=== PATIENT | male | born 1975 | race Two or more races ===

== ENCOUNTER 2016-07-09 11:25 | Emergency (ER) | payer SELFPAY ==
[~2016-07-09] VITALS: Ht 177.8 cm; Wt 81.6 kg
[2016-07-09] MEDS ORDERED: ALBUTEROL SULF 2.5 MG/0.5ML(0.5%) NEB SOLN NEB ONE (12:00)
[2016-07-09] MEDS ORDERED: IPRATROPIUM BROM 0.5 MG/2.5ML INH SOL NEB ONE (12:00)
[2016-07-09 12:55] LABS: Basophils # (auto) 0 uL; Basophils % (auto) 0.4 % (0.0-2.0); DEFINITIVE VIEW TRANSMISSION; Eosinophils # (auto) 0.7 uL; Eosinophils % (auto) 10.5 % (0.0-7.0); Hematocrit 45.1 % (41.0-53.0); Hemoglobin 15.1 g/dL (13.5-17.5); Lymphocytes # (auto) 2.6 uL; Mean Corpuscular Hemoglobin 28.4 pg (28.0-32.0); Mean Corpuscular Hgb Conc. 33.6 g/dL (32.0-36.0); Mean Corpuscular Volume 84.4 fL (80.0-100.0); Mean Platelet Volume 8.3 fL (7.4-10.4); Monocytes # (auto) 0.5 uL; Monocytes % (auto) 7.7 % (0.0-12.0); Neutrophils # (auto) 3.1 uL; Neutrophils % (auto) 44.4 % (37.0-80.0); Platelet Count (auto) 282 10^3/uL (140-450); Red Cell Distribution Width 13.3 % (11.6-16.0)
[2016-07-09 13:04] VITALS: BP 131/86
[2016-07-09 13:09] LABS: Albumin 3.8 g/dL (3.4-5.0); Anion Gap 9 (5-15); Blood Urea Nitrogen 17 mg/dL (7-18); Carbon Dioxide 28 mmol/L (21-32); Chloride 108 mmol/L (98-107); Glucose 128 mg/dL (74-106); Magnesium 2.5 mg/dL (1.6-2.6); Potassium 3.7 mmol/L (3.5-5.1); Sodium 145 mmol/L (136-145)
[2016-07-09 13:12] LABS: Aspartate Aminotransferase 25 U/L (15-37); BUN/Creatinine Ratio 15.7; GFR African American 97 mL/min; GFR Non-African American 80 mL/min
[2016-07-09 13:16] LABS: Alkaline Phosphatase 70 U/L (45-117); Bilirubin, Total 1.2 mg/dL (0.2-1.0); Total Protein 7.6 g/dL (6.4-8.2)
[2016-07-09] MEDS ORDERED: ALBUTEROL SULF 2.5 MG/0.5ML(0.5%) NEB SOLN HHN ONE (13:30)
[2016-07-09] MEDS ORDERED: SODIUM CHLORIDE 0.9% 1,000 ML IV ONE (13:30)
[2016-07-09] MEDS ORDERED: IPRATROPIUM BROM 0.5 MG/2.5ML INH SOL HHN ONE (13:30)
[2016-07-09] MEDS ORDERED: methylPREDNISolone SOD SUCC 125 MG/2 ML VL IV ONE (13:30)
== END 2016-07-09 14:25 | disposition home or self-care (01) ==
LOC: ER 11:25
DX: J45.909 Unspecified asthma, uncomplicated (principal)
CPT/HCPCS: 36415; 71020; 80053; 83735; 84484; 85025; 93005; 94640; 94644; 94761; 96361; 96374; 99285; J2930; J7030

== ENCOUNTER 2020-09-11 11:37 | Inpatient (IN) | payer MEDICAID, OTHER ==
[~2020-09-11] VITALS: Ht 177.8 cm; Wt 87.6 kg
[2020-09-11] MEDS ORDERED: cefTRIAXone 1GM/50ML D5W 50 ML IV ONE (12:00)
[2020-09-11] MEDS ORDERED: DexAMETHasone SOD PHOS 10MG/1ML VIAL INJ IV ONE (12:15)
[2020-09-11 12:17] LABS: Basophils # (auto) 0 10 ^3/uL (0-0.2); Basophils % (auto) 0.1 % (0.0-2.0); Eosinophils # (auto) 0 10 ^3/uL (0-0.8); Hematocrit 44.4 % (41.0-53.0); Hemoglobin 14.8 g/dL (13.5-17.5); Lymphocytes # (auto) 0.7 10 ^3/uL (0.4-5.4); Lymphocytes % (auto) 13.2 % (10.0-50.0); Mean Corpuscular Hemoglobin 28.5 pg (28.0-32.0); Mean Corpuscular Hgb Conc. 33.4 g/dL (32.0-36.0); Mean Corpuscular Volume 85.3 fL (80.0-100.0); Monocytes # (auto) 0.2 10 ^3/uL (0-1.3); Neutrophils # (auto) 4.7 10 ^3/uL (1.6-8.6); Neutrophils % (auto) 83.7 % (37.0-80.0); Nucleated Red Blood Cells % 0.1 %; Red Cell Distribution Width 13.2 % (11.8-14.3); White Blood Cell 5.6 10^3/uL (4.4-10.8)
[2020-09-11 12:35] LABS: Albumin 3.3 g/dL (3.4-5.0); Calcium 8.5 mg/dL (8.5-10.1); Potassium 3.7 mmol/L (3.5-5.1)
[2020-09-11 12:36] LABS: Lactic Acid w/Reflex 3.1 mmol/L (0.4-2.0)
[2020-09-11 12:38] LABS: BUN/Creatinine Ratio 12.4; Bilirubin, Total 0.5 mg/dL (0.2-1.0)
[2020-09-11] MEDS ORDERED: NITROGLYCERIN 0.4 MG SL TAB SL PRN (16:15)
[2020-09-11] MEDS ORDERED: MORPHINE SULFATE INJECTION 2 MG/2 ML SYRG IV PRN (16:15)
[2020-09-11] MEDS ORDERED: REMDESIVIR PER PHARMACY 0 ML IV SCH (16:15)
[2020-09-11] MEDS: ACETAMINOPHEN 500 MG TAB PO PRN (17:00)
[2020-09-11] MEDS ORDERED: REMDESIVIR 200 MG in NS 210ml LOADING DOSE ADULT IV ONE (18:00)
[2020-09-11 20:08] VITALS: BP 124/85
[2020-09-11 20:55] LABS: Urine Bacteria NONE SEEN /hpf (None Seen); Urine Blood Negative /uL (Negative); Urine Mucus FEW (None Seen); Urine Specific Gravity 1.016 (1.001-1.035); Urine WBC <1 /hpf (0 - 3)
[2020-09-11 21:10] LABS: Amphetamine Screen, Urine NEGATIVE (NEGATIVE); Barbiturate Scree,Urine NEGATIVE (NEGATIVE); Benzodiazephine Screen, Urine NEGATIVE (NEGATIVE); Cannabinoid Screen, Urine NEGATIVE (NEGATIVE); Cocaine Screen, Urine NEGATIVE (NEGATIVE); Opiate Scree,Urine NEGATIVE (NEGATIVE); Phencyclidine Screen, Urine NEGATIVE (NEGATIVE)
[2020-09-11 21:45] VITALS: BP 110/77
[2020-09-11] MEDS: BUDESONIDE (INHALATION) 180 MCG IH IN SCH (22:00)
[2020-09-11] MEDS: ENOXAPARIN SOD 40 MG/0.4 ML SYRINGE SC SCH (22:20)
[2020-09-12 05:20] VITALS: BP 129/80
[2020-09-12] MEDS ORDERED: IVERMECTIN 3 MG TAB PO ONE (07:00)
[2020-09-12] MEDS: BUDESONIDE (INHALATION) 180 MCG IH IN SCH ×2 (07:35→22:20)
[2020-09-12] MEDS: ALBUTEROL SULF HFA 90MCG INH 200DOSE IN PRN ×2 (07:35→22:20)
[2020-09-12 07:36] LABS: Albumin 2.9 g/dL (3.4-5.0); Calcium 8.5 mg/dL (8.5-10.1); Potassium 4.5 mmol/L (3.5-5.1)
[2020-09-12 07:39] LABS: BUN/Creatinine Ratio 19.1; Bilirubin, Total 0.5 mg/dL (0.2-1.0); Total Protein 7.7 g/dL (6.4-8.2)
[2020-09-12 09:00] VITALS: BP 128/80
[2020-09-12] MEDS: DexAMETHasone SOD PHOS 10MG/1ML VIAL INJ IV SCH (09:49)
[2020-09-12] MEDS: ZINC SULFATE 220mg CAP or TAB PO SCH (09:49)
[2020-09-12] MEDS: ASCORBIC ACID 1,000 MG TAB PO SCH (09:49)
[2020-09-12] MEDS: CHOLECALCIFEROL (VITD3) 2,000 UNIT CAP/TAB PO SCH (09:49)
[2020-09-12] MEDS: cefTRIAXone 1GM/50ML D5W 50 ML IV SCH (09:49)
[2020-09-12] MEDS: ENOXAPARIN SOD 40 MG/0.4 ML SYRINGE SC SCH ×2 (09:50→22:13)
[2020-09-12] MEDS: ACETAMINOPHEN 500 MG TAB PO PRN (09:51)
[2020-09-12] MEDS ORDERED: AZITHROMYCIN 500MG/ 250ML 250 ML IV SCH (10:00)
[2020-09-12 13:00] VITALS: BP 117/74
[2020-09-12] MEDS: REMDESIVIR 100mg 100 MG in SODIUM CHL 0.9% 230 ML IV SCH (15:49)
[2020-09-12 17:00] VITALS: BP 116/70
[2020-09-12 22:00] VITALS: BP 127/76
[2020-09-13 05:00] VITALS: BP 120/74
[2020-09-13 05:55] LABS: Albumin 2.9 g/dL (3.4-5.0); Calcium 8.9 mg/dL (8.5-10.1); Potassium 3.9 mmol/L (3.5-5.1)
[2020-09-13 05:59] LABS: BUN/Creatinine Ratio 23.3; Bilirubin, Total 0.4 mg/dL (0.2-1.0); Total Protein 7.6 g/dL (6.4-8.2)
[2020-09-13] MEDS: ALBUTEROL SULF HFA 90MCG INH 200DOSE IN PRN ×2 (06:00→19:54)
[2020-09-13] MEDS: BUDESONIDE (INHALATION) 180 MCG IH IN SCH ×2 (06:01→19:54)
[2020-09-13 09:00] VITALS: BP 118/73
[2020-09-13] MEDS: cefTRIAXone 1GM/50ML D5W 50 ML IV SCH (09:37)
[2020-09-13] MEDS: DexAMETHasone SOD PHOS 10MG/1ML VIAL INJ IV SCH (09:37)
[2020-09-13] MEDS: IVERMECTIN 3 MG TAB PO SCH (09:38)
[2020-09-13] MEDS: CHOLECALCIFEROL (VITD3) 2,000 UNIT CAP/TAB PO SCH (09:38)
[2020-09-13] MEDS: ZINC SULFATE 220mg CAP or TAB PO SCH (09:38)
[2020-09-13] MEDS: ASCORBIC ACID 1,000 MG TAB PO SCH (09:38)
[2020-09-13] MEDS: ENOXAPARIN SOD 40 MG/0.4 ML SYRINGE SC SCH ×2 (09:39→21:20)
[2020-09-13] MEDS: AZITHROMYCIN 250 MG TAB PO SCH (09:39)
[2020-09-13 13:00] VITALS: BP 125/78
[2020-09-13] MEDS: REMDESIVIR 100mg 100 MG in SODIUM CHL 0.9% 230 ML IV SCH (14:03)
[2020-09-13 17:00] VITALS: BP_SYST 127; BP_SYST 144; BP_DIAS 79; BP_DIAS 80
[2020-09-13 22:00] VITALS: BP 125/75
[2020-09-14 05:00] VITALS: BP 123/68
[2020-09-14] MEDS: ALBUTEROL SULF HFA 90MCG INH 200DOSE IN PRN ×2 (06:39→22:55)
[2020-09-14] MEDS: BUDESONIDE (INHALATION) 180 MCG IH IN SCH ×2 (06:39→22:00)
[2020-09-14 07:05] LABS: Albumin 2.8 g/dL (3.4-5.0); Calcium 8.3 mg/dL (8.5-10.1); Potassium 4.3 mmol/L (3.5-5.1)
[2020-09-14 07:10] LABS: BUN/Creatinine Ratio 21.2; Bilirubin, Total 0.4 mg/dL (0.2-1.0); Total Protein 7.1 g/dL (6.4-8.2)
[2020-09-14] MEDS ORDERED: ONDANSETRON HCL 4 MG/2 ML VIAL IV PRN (08:30)
[2020-09-14] MEDS: cefTRIAXone 1GM/50ML D5W 50 ML IV SCH (08:58)
[2020-09-14 09:00] VITALS: BP 95/56
[2020-09-14] MEDS: DexAMETHasone SOD PHOS 10MG/1ML VIAL INJ IV SCH (09:02)
[2020-09-14] MEDS: ZINC SULFATE 220mg CAP or TAB PO SCH (09:02)
[2020-09-14] MEDS: IVERMECTIN 3 MG TAB PO SCH (09:02)
[2020-09-14] MEDS: ASCORBIC ACID 1,000 MG TAB PO SCH (09:02)
[2020-09-14] MEDS: CHOLECALCIFEROL (VITD3) 2,000 UNIT CAP/TAB PO SCH (09:02)
[2020-09-14] MEDS: ENOXAPARIN SOD 40 MG/0.4 ML SYRINGE SC SCH ×2 (09:03→21:41)
[2020-09-14] MEDS: ACETAMINOPHEN 325 MG TAB PO PRN ×2 (09:03→21:42)
[2020-09-14] MEDS: AZITHROMYCIN 250 MG TAB PO SCH (09:06)
[2020-09-14] MEDS ORDERED: POTASSIUM CHL 20 Meq TABLET PO ONE (11:30)
[2020-09-14] MEDS ORDERED: FUROSEMIDE 20 MG/2 ML VIAL IV ONE (11:30)
[2020-09-14 13:00] VITALS: BP 125/88
[2020-09-14] MEDS: REMDESIVIR 100mg 100 MG in SODIUM CHL 0.9% 230 ML IV SCH (16:00)
[2020-09-14 16:33] VITALS: BP 120/80
[2020-09-14 22:00] VITALS: BP 103/66
[2020-09-15] VITALS (7 sets, daily range): BP systolic 103–126; BP diastolic 56–82
[2020-09-15 06:20] LABS: Albumin 3.1 g/dL (3.4-5.0); Calcium 8.9 mg/dL (8.5-10.1); Potassium 4.1 mmol/L (3.5-5.1)
[2020-09-15 06:28] LABS: Bilirubin, Total 0.8 mg/dL (0.2-1.0); Total Protein 7.6 g/dL (6.4-8.2)
[2020-09-15] MEDS: ALBUTEROL SULF HFA 90MCG INH 200DOSE IN PRN (07:51)
[2020-09-15] MEDS: BUDESONIDE (INHALATION) 180 MCG IH IN SCH ×2 (07:51→19:26)
[2020-09-15] MEDS: cefTRIAXone 1GM/50ML D5W 50 ML IV SCH (10:35)
[2020-09-15] MEDS: DexAMETHasone SOD PHOS 10MG/1ML VIAL INJ IV SCH (10:35)
[2020-09-15] MEDS: ZINC SULFATE 220mg CAP or TAB PO SCH (10:35)
[2020-09-15] MEDS: AZITHROMYCIN 250 MG TAB PO SCH (10:36)
[2020-09-15] MEDS: ASCORBIC ACID 1,000 MG TAB PO SCH (10:36)
[2020-09-15] MEDS: CHOLECALCIFEROL (VITD3) 2,000 UNIT CAP/TAB PO SCH (10:36)
[2020-09-15] MEDS: IVERMECTIN 3 MG TAB PO SCH (10:36)
[2020-09-15] MEDS: ENOXAPARIN SOD 40 MG/0.4 ML SYRINGE SC SCH ×2 (10:37→21:36)
[2020-09-15] MEDS: REMDESIVIR 100mg 100 MG in SODIUM CHL 0.9% 230 ML IV SCH (16:30)
[2020-09-15] MEDS: ACETAMINOPHEN 325 MG TAB PO PRN (21:36)
[2020-09-16 05:19] VITALS: BP 112/71
[2020-09-16] MEDS: ALBUTEROL SULF HFA 90MCG INH 200DOSE IN PRN ×2 (06:12→21:48)
[2020-09-16] MEDS: BUDESONIDE (INHALATION) 180 MCG IH IN SCH ×2 (06:12→21:48)
[2020-09-16 08:00] VITALS: BP 118/80
[2020-09-16 09:00] VITALS: BP 118/80
[2020-09-16] MEDS: DexAMETHasone SOD PHOS 10MG/1ML VIAL INJ IV SCH (10:03)
[2020-09-16] MEDS: cefTRIAXone 1GM/50ML D5W 50 ML IV SCH (10:03)
[2020-09-16] MEDS: ZINC SULFATE 220mg CAP or TAB PO SCH (10:03)
[2020-09-16] MEDS: IVERMECTIN 3 MG TAB PO SCH (10:04)
[2020-09-16] MEDS: AZITHROMYCIN 250 MG TAB PO SCH (10:04)
[2020-09-16] MEDS: ENOXAPARIN SOD 40 MG/0.4 ML SYRINGE SC SCH ×2 (10:04→21:15)
[2020-09-16] MEDS: ASCORBIC ACID 1,000 MG TAB PO SCH (10:04)
[2020-09-16] MEDS: CHOLECALCIFEROL (VITD3) 2,000 UNIT CAP/TAB PO SCH (10:04)
[2020-09-16 13:00] VITALS: BP 109/73
[2020-09-16 17:00] VITALS: BP 122/87
[2020-09-16 22:00] VITALS: BP 119/81
[2020-09-17 05:00] VITALS: BP 125/83
[2020-09-17] MEDS: BUDESONIDE (INHALATION) 180 MCG IH IN SCH (05:49)
[2020-09-17] MEDS: ALBUTEROL SULF HFA 90MCG INH 200DOSE IN PRN (05:49)
[2020-09-17 06:24] LABS: Albumin 3.1 g/dL (3.4-5.0); Calcium 8.6 mg/dL (8.5-10.1); Potassium 4.4 mmol/L (3.5-5.1)
[2020-09-17 06:26] LABS: BUN/Creatinine Ratio 26.7
[2020-09-17 06:29] LABS: Bilirubin, Total 0.6 mg/dL (0.2-1.0); Total Protein 7.4 g/dL (6.4-8.2)
[2020-09-17 08:00] VITALS: BP 114/59
[2020-09-17 08:12] VITALS: BP 114/59
[2020-09-17] MEDS: ASCORBIC ACID 1,000 MG TAB PO SCH (09:13)
[2020-09-17] MEDS: CHOLECALCIFEROL (VITD3) 2,000 UNIT CAP/TAB PO SCH (09:13)
[2020-09-17] MEDS: DexAMETHasone SOD PHOS 10MG/1ML VIAL INJ IV SCH (09:13)
[2020-09-17] MEDS: ZINC SULFATE 220mg CAP or TAB PO SCH (09:13)
[2020-09-17] MEDS: cefTRIAXone 1GM/50ML D5W 50 ML IV SCH (09:13)
[2020-09-17] MEDS: ENOXAPARIN SOD 40 MG/0.4 ML SYRINGE SC SCH (09:14)
[2020-09-17 12:00] VITALS: BP 112/76
== END 2020-09-17 16:20 | disposition home or self-care (01) | DRG 720 ==
LOC: ER 11:37 → TELE 16:09 → TELE-EAST 21:45
PROVIDERS: ADMIT Nurse Practitioner Acute Care; ATTEND Internal Medicine
PROC: XW033E5 Introduction of Remdesivir Anti-infective into Peripheral Vein, Percutaneous Approach, New Technology Group 5 (ICD-10-PCS; principal; 2020-09-11)
DX: A41.89 Other specified sepsis (principal); J96.01 Acute respiratory failure with hypoxia; J12.82 Pneumonia due to coronavirus disease 2019; U07.1 COVID-19; D68.59 Other primary thrombophilia; D89.839 Cytokine release syndrome, grade unspecified; J45.909 Unspecified asthma, uncomplicated; E66.3 Overweight; R79.89 Other specified abnormal findings of blood chemistry; Z68.28 Body mass index [BMI] 28.0-28.9, adult
CPT/HCPCS: 36415; 36600; 71045; 80053; 80307; 81001; 82728; 82805; 83605; 83615; 85025; 85379; 86141; 86850; 86900; 86901; 87040; 87426; 93005; 94640; 96365; 96375; G0378; J0696; J1100; J2405